=== PATIENT | female | born 1985 | race Caucasian/White ===

== ENCOUNTER 2017-04-18 03:57 | Emergency (ER) | payer SELFPAY ==
[~2017-04-18] VITALS: Ht 172.7 cm; Wt 61.2 kg
[~2017-04-18 03:57] MED LIST: CLARITIN10 MG PO; FLEXERIL10 MG PO; MELOXICAM15 MG PO; MOTRIN800 MG PO; Motrin,Rufen800 MG PO; NAPROSYN500 MG PO; ORTHO TRI-CYCLE1 TA1 PO; ROBAXIN500 MG PO; VICODIN 5/500 505 MG PO; ZITHROMAX Z PA250 MG PO
[2017-04-18] MEDS ORDERED: ANAPROX DS550 MG PO (04:55)
== END 2017-04-18 05:27 | disposition home or self-care (01) ==
LOC: ED 03:57
DX: G89.29 Other chronic pain (principal); M25.551 Pain in right hip; M79.7 Fibromyalgia; Z88.1 Allergy status to other antibiotic agents

== ENCOUNTER 2017-06-26 01:37 | Emergency (ER) | payer SELFPAY ==
[~2017-06-26] VITALS: Ht 170.1 cm; Wt 61.2 kg
[~2017-06-26 01:37] MED LIST changes: +ANAPROX DS550 MG PO
[2017-06-26] MEDS ORDERED: ANAPROX DS550 MG PO (02:50)
== END 2017-06-26 02:52 | disposition home or self-care (01) ==
LOC: ED 01:37
DX: M79.7 Fibromyalgia (principal); M79.604 Pain in right leg; M79.605 Pain in left leg; Z88.1 Allergy status to other antibiotic agents

== ENCOUNTER 2017-08-09 04:42 | Emergency (ER) | payer MEDICAID ==
[~2017-08-09] VITALS: Ht 170.1 cm; Wt 61.2 kg
[2017-08-09] MEDS ORDERED: CYCLOBENZAPRINE10 MG PO (04:58)
== END 2017-08-09 05:17 | disposition home or self-care (01) ==
LOC: ED 04:42
DX: M79.7 Fibromyalgia (principal); M25.552 Pain in left hip; M25.551 Pain in right hip; G89.29 Other chronic pain; Z88.8 Allergy status to other drugs, medicaments and biological substances

== ENCOUNTER → 2017-12-24 | Outpatient (CLI) | payer OTHER ==
[~2017-12-24] MED LIST changes: +CYCLOBENZAPRINE10 MG PO
[2017-12-24 15:57] LABS: BASO % 0.4 % (0.0-1.0); EOS # 0.1 10*3/uL (0.0-0.4); HEMATOCRIT 32.5 % (37.0-47.0); HEMOGLOBIN 9.5 g/dl (12.0-16.0); LYMPH # 1.2 10*3/uL (1.3-4.4); LYMPH % 22.5 % (27.0-41.0); MEAN CELL VOLUME 76.8 fl (81.0-99.0); MEAN CORPUSCULAR HGB 22.5 pg (27.0-31.0); MEAN CORPUSCULAR HGB CONC 29.2 g/dl (33.0-37.0); MONO # 0.5 10*3/uL (0.1-1.0); NEUT # 3.5 10*3/uL (2.3-7.9); NEUT % 66.7 % (47.0-73.0); PLATELET COUNT AUTOMATED 145 10*3/uL (130-400); RED BLOOD COUNT 4.23 10*6/uL (4.10-5.10); RED CELL DISTRI WIDTH 19.3 % (0-14.5); WHITE BLOOD COUNT 5.3 10*3/uL (4.8-10.8)
[2017-12-24 16:11] LABS: ALBUMIN 4.1 gm/dl (3.1-4.5); ALKALINE PHOSPHATASE 60 U/L (45-117); BUN 4 mg/dl (7-24); CHLORIDE 103 mmol/L (98-107); CREATININE 0.66 mg/dL (0.55-1.02); FREE T4 0.89 ng/dl (0.76-1.46); IRON 21 ug/dL (50-170); POTASSIUM 2.9 mmol/L (3.5-5.1); SGOT/AST 17 IU/L (3-35); SGPT/ALT 17 U/L (12-78); SODIUM 137 mmol/L (136-145); TOTAL IRON BINDING CAPACITY 402 ug/dl (250-450); TOTAL PROTEIN 8.1 gm/dL (6.4-8.2)
[2017-12-24 16:23] LABS: FERRITIN 9.1 ng/mL (10.0-291.0)
[2017-12-25 08:11] LABS: RHEUMATOID ARTHRITIS FACTOR <10.0 IU/mL (0.0-13.9); TRANSFERRIN 004937 321 mg/dL (200-370)
[2017-12-25 11:02] LABS: ANTI-DSDNA ANTIBODIES 096339 1 IU/mL (0-9)
[2017-12-26 00:02] LABS: CCP ANTIBODIES IGG/IGA <1 units (0-19)
== END | disposition home or self-care (01) ==
LOC: LAB 12-12 02:57
PROVIDERS: Internal Medicine
DX: M79.7 Fibromyalgia (principal)

== ENCOUNTER 2018-05-13 20:22 | Emergency (ER) | payer OTHER ==
[~2018-05-13] VITALS: Ht 170.1 cm; Wt 62.6 kg
[~2018-05-13 20:22] MED LIST changes: +ADDERALL XR20 MG PO; +REMERON15 M2 PO; +XANAX0.5 MG PO
[2018-05-13 21:26] LABS: BILIRUBIN NEGATIVE (NEGATIVE); BLOOD 3+ (NEGATIVE); CLARITY CLEAR (CLEAR); COLOR YELLOW (YELLOW); GLUCOSE NEGATIVE (NEGATIVE); KETONE NEGATIVE (NEGATIVE); LEUKO ESTERASE TRACE (NEGATIVE); NITRITE NEGATIVE (NEGATIVE); SPECIFIC GRAVITY <= 1.005 (1.005-1.030); UROBILINOGEN 0.2 E.U./dl (0.2-1.0)
[2018-05-13 21:37] LABS: BACTERIA TRACE; EPITHELIAL CELLS 0-2; RBC TNTC rbc/hpf (0-2); WBC 0-2 wbc/hpf (0-5)
[2018-05-13 22:09] LABS: BASO % 0.7 % (0.0-1.0); EOS % 0.2 % (1.0-4.0); HEMATOCRIT 35.7 % (37.0-47.0); HEMOGLOBIN 11.5 g/dl (12.0-16.0); LYMPH # 0.9 10*3/uL (1.3-4.4); MEAN CELL VOLUME 88.8 fl (81.0-99.0); MEAN CORPUSCULAR HGB 28.6 pg (27.0-31.0); MEAN CORPUSCULAR HGB CONC 32.2 g/dl (33.0-37.0); MEAN PLATELET VOLUME 12.2 fl (9.6-12.3); MONO # 0.3 10*3/uL (0.1-1.0); MONO % 6.5 % (3.0-9.0); NEUT # 3.1 10*3/uL (2.3-7.9); NEUT % 71.4 % (47.0-73.0); PLATELET COUNT AUTOMATED 154 10*3/uL (130-400); RED BLOOD COUNT 4.02 10*6/uL (4.10-5.10); RED CELL DISTRI WIDTH 14.8 % (0-14.5); WHITE BLOOD COUNT 4.3 10*3/uL (4.8-10.8)
[2018-05-13 22:20] LABS: BUN 4 mg/dl (7-24); CHLORIDE 110 mmol/L (98-107); CREATININE 0.58 mg/dL (0.55-1.02); POTASSIUM 3.3 mmol/L (3.5-5.1); SODIUM 142 mmol/L (136-145)
[2018-05-13 22:25] LABS: B-hCG (QUALITATIVE) NEGATIVE (NEGATIVE)
== END 2018-05-14 00:24 | disposition home or self-care (01) ==
LOC: ED 20:22
PROVIDERS: Physician Assistant
DX: N93.8 Other specified abnormal uterine and vaginal bleeding (principal); Z98.890 Other specified postprocedural states; Z79.899 Other long term (current) drug therapy; Z88.1 Allergy status to other antibiotic agents

== ENCOUNTER → 2018-06-17 | Outpatient (CLI) | payer OTHER | END | disposition home or self-care (01) | LOC: RAD 14:18 | DX: M46.1 Sacroiliitis, not elsewhere classified (principal); G89.29 Other chronic pain ==

== ENCOUNTER → 2019-05-04 | Outpatient (CLI) | payer OTHER ==
[2019-05-04 14:19] LABS: BASO % 0.4 % (0.0-1.0); EOS # 0.1 10*3/uL (0.0-0.4); EOS % 2.6 % (1.0-4.0); HEMATOCRIT 37.1 % (37.0-47.0); HEMOGLOBIN 11.7 g/dl (12.0-16.0); LYMPH % 37.6 % (27.0-41.0); MEAN CELL VOLUME 92.1 fl (81.0-99.0); MEAN CORPUSCULAR HGB CONC 31.5 g/dl (33.0-37.0); MEAN PLATELET VOLUME 12.2 fl (9.6-12.3); MONO # 0.6 10*3/uL (0.1-1.0); MONO % 11.4 % (3.0-9.0); NEUT # 2.6 10*3/uL (2.3-7.9); NEUT % 47.8 % (47.0-73.0); PLATELET COUNT AUTOMATED 186 10*3/uL (130-400); RED BLOOD COUNT 4.03 10*6/uL (4.10-5.10); RED CELL DISTRI WIDTH 14.9 % (0-14.5); WHITE BLOOD COUNT 5.4 10*3/uL (4.8-10.8)
== END | disposition home or self-care (01) ==
LOC: LAB 13:38
PROVIDERS: Psychiatry & Neurology Psychiatry
DX: D50.9 Iron deficiency anemia, unspecified (principal); E55.9 Vitamin D deficiency, unspecified

== ENCOUNTER 2019-10-03 03:27 | Emergency (ER) | payer OTHER ==
[~2019-10-03] VITALS: Ht 172.7 cm; Wt 65.8 kg
[2019-10-03] MEDS ORDERED: Orphenadrine C100 MG PO (05:58)
[2019-10-03] MEDS ORDERED: Motrin,Rufen800 MG PO (05:58)
== END 2019-10-03 06:04 | disposition home or self-care (01) ==
LOC: ED 03:27
DX: M54.2 Cervicalgia (principal); M79.7 Fibromyalgia; G89.29 Other chronic pain; Z98.890 Other specified postprocedural states; Z79.899 Other long term (current) drug therapy; Z88.1 Allergy status to other antibiotic agents; V49.88XA Car occupant (driver) (passenger) injured in other specified transport accidents, initial encounter; Y93.89 Activity, other specified; Y92.413 State road as the place of occurrence of the external cause; Y99.9 Unspecified external cause status

== ENCOUNTER → 2020-07-12 | Outpatient (CLI) | payer OTHER ==
[~2020-07-12] MED LIST changes: +Orphenadrine C100 MG PO
[2020-07-12 14:39] LABS: BASO % 0.5 % (0.0-1.0); HEMATOCRIT 34.7 % (37.0-47.0); LYMPH # 1.5 10*3/uL (1.3-4.4); MEAN CORPUSCULAR HGB 22.5 pg (27.0-31.0); MEAN CORPUSCULAR HGB CONC 28.8 g/dl (33.0-37.0); MEAN PLATELET VOLUME 11.6 fl (9.6-12.3); MONO # 0.5 10*3/uL (0.1-1.0); MONO % 8.6 % (3.0-9.0); NEUT # 4.2 10*3/uL (2.3-7.9); NEUT % 66.7 % (47.0-73.0); PLATELET COUNT AUTOMATED 226 10*3/uL (130-400); RED BLOOD COUNT 4.45 10*6/uL (4.10-5.10); WHITE BLOOD COUNT 6.3 10*3/uL (4.8-10.8)
[2020-07-12 15:02] LABS: THYROID STIM HORMONE (HS) 0.708 uIU/ml (0.358-4.75)
[2020-07-12 15:08] LABS: FERRITIN 2.2 ng/mL (10.0-291.0); VITAMIN D, 25-HYDROXY 56.7 ng/mL (30-100)
== END | disposition home or self-care (01) ==
LOC: LAB 14:23
PROVIDERS: ATTEND Psychiatry & Neurology Psychiatry
DX: E55.9 Vitamin D deficiency, unspecified (principal); R53.83 Other fatigue; D50.9 Iron deficiency anemia, unspecified